=== PATIENT | male | born 1990 | race Caucasian/White ===

== ENCOUNTER 2021-09-07 12:26 | Emergency (ER) | payer OTHER, SELFPAY ==
[2021-09-07 12:43] VITALS: BP 136/84; PULSE 93; RESP 14; TEMP 36.5; O2SAT 95; BMI 19.9
--- NOTE | 2021-09-07 12:55 | ED.GENADULT ---
HPI - General Adult General Chief complaint: Nausea/Vomiting Stated complaint: Chills, Headache, and Vomiting Time Seen by Provider: 09/07/21 12:45 History of Present Illness HPI narrative: This 30-year-old male comes in reporting upper respiratory symptoms that began slightly last evening. He states that he slept through was alarm this morning and awoke with having chills, headache, cough, congestion, nausea, and 3 vomiting episodes. He arrives here actually with normal vital signs. He did not measure a temperature at home. His temperature here is 97.7. He does not have any shortness of breath. Related Data Previous Rx's Medication Instructions Recorded ketorolac 10 mg tablet 10 mg PO TID 5 Days #15 tab 09/07/21 ondansetron HCl 4 mg tablet 4 mg PO Q6H #20 tab 09/07/21 Allergies Allergy/AdvReac Type Severity Reaction Status Date / Time No Known Allergies Allergy Verified 09/07/21 12:46 Review of Systems Status of ROS: Reports: 10 or more systems reviewed and unremarkable except as noted in History and below Narrative: Constitutional: No fevers, no weight gain or loss. Eyes: No discharge. No vision changes. HENT: No sore throat, no ear pain. He reports nasal congestion. Cardiovascular: No chest pain, no palpitations. Respiratory: No shortness of breath, no wheezes. He reports a cough. Gastrointestinal: No abdominal pain, no diarrhea. He has nausea with vomiting. Genitourinary: No dysuria, no hematuria. Musculoskeletal: Normal range of motion. Skin: No rashes, no pruritis. Neurological: No dizziness, weakness, sensory change, speech change. Endo/Heme/Allergies: No bruising or bleeding. No polydipsia. Pysch: no suicidality, no anxiety, no insomnia. All other systems reviewed and are negative. [facility] History (Updated 09/07/21 @ 14:04 by Stephen Mistry MD) No significant past medical history Surgical History (Updated 09/07/21 @ 12:47 by Xenia Langley RN) No significant past surgical history Social History Smoking Status: Current every day smoker What tobacco products do you use: cigarettes How often do you have a drink containing alcohol: monthly or less How many standard drinks containing alcohol do you have on a typical day: 3 or 4 How often do you have six or more drinks on one occasion: Monthly AUDIT-C Alcohol total score: 4 Non-prescribed substance use: denies use Exam Narrative: Exam Narrative: Constitutional: Well-developed, well-nourished, no acute distress. HEENT: Normocephalic, atraumatic. Neck: Normal range of motion. Nontender. Supple. Heart: Regular. No murmurs. Normal rate. Intact distal pulses. Lungs: Clear to auscultation. No chest discomfort. No wheezes, rhonchi, or rales. Abdomen: Normal bowel sounds. Nontender. No rebound tenderness. Genitalia: Deferred. Back: No midline tenderness. Normal range of motion. Extremities: Normal range of motion. No injury. Skin: Intact. No rash. Warm. No erythema or pallor. Neurologic: No altered sensation. No weakness. Alert and oriented. Psychiatric: No suicidality. No anxiety or depression. No insomnia. Nursing notes and vitals signs are reviewed. Const: Vital Signs, click to edit/add: Vital Signs - 24 hr 09/07/21 12:43 Temperature 97.7 F Pulse Rate [Right Pulse Oximeter] 93 Respiratory Rate 14 Blood Pressure [Ri ght Upper Arm] 136/84 Pulse Oximetry 95 Course Vital Signs Vital signs: Initial Vital Signs Temperature 97.7 F 09/07/21 12:43 Temperature Source Temporal Artery Scan 09/07/21 12:43 Pulse Rate 93 09/07/21 12:43 Respiratory Rate 14 09/07/21 12:43 Blood Pressure 136/84 09/07/21 12:43 Blood Pressure Mean 101 09/07/21 12:43 Blood Pressure Position Sitting 09/07/21 12:43 Pulse Oximetry 95 09/07/21 12:43 Oxygen Delivery Method 09/07/21 12:43 Vital Signs Temperature 97.7 F 09/07/21 12:43 Pulse Rate 93 09/07/21 12:43 Respiratory Rate 14 09/07/21 12:43 Blood Pressure 136/84 09/07/21 12:43 Pulse Oximetry 95 09/07/21 12:43 Temperature 97.7 F 09/07/21 12:43 Pulse Rate 93 09/07/21 12:43 Respiratory Rate 14 09/07/21 12:43 Blood Pressure 136/84 09/07/21 12:43 Pulse Oximetry 95 09/07/21 12:43 Medical Decision Making MDM Narrative Medical decision making narrative: This patient comes in with vomiting and upper respiratory symptoms as described above. His COVID and influenza testings returned negative. The patient did receive an oral dose of Zofran which brought great relief to his nausea. He has normal vital signs and is okay to return home. He did received prescriptions for Zofran and Toradol. Lab Data Labs: Lab Results 09/07/21 Range/Units 13:05 SARS-CoV-2 (PCR) Negative SARS-CoV-2 (Negative) Influenza Type A (PCR) Negative PCR FLU A (Negative) Influenza Type B (PCR) Negative PCR FLU B (Negative) Discharge Plan Discharge Clinical Impression: Acute upper respiratory infection Patient Disposition: Home, Self-Care Condition: Improved Instructions: Upper Respiratory Infection (ED) Additional Instructions: Take medication as needed and indicated. Follow up with MD or return if worsening. Prescriptions: New ondansetron HCl 4 mg tablet 4 mg PO Q6H Qty: 20 0RF ketorolac 10 mg tablet 10 mg PO TID 5 Days Qty: 15 0RF Follow Up/Referrals: Provider,Not a Local [Primary Care Provider] - Stand Alone Forms: [employer] Info Instructions
[2021-09-07] MEDS: ONDANSETRON ODT 4 MG TAB PO (13:01)
[2021-09-07 13:50] LABS: PCR FLU A Negative PCR FLU A (Negative); PCR FLU B Negative PCR FLU B (Negative)
[2021-09-07 13:52] LABS: SARS PCR* Negative SARS-CoV-2 (Negative)
[2021-09-07 14:30] VITALS: BP 120/82; PULSE 78; RESP 14; TEMP 37.1
== END 2021-09-07 14:30 | disposition home or self-care (01) ==
PROVIDERS: Emergency Provider Emergency Medicine Emergency Medical Services
DX: J06.9 Acute upper respiratory infection, unspecified (principal)
CPT/HCPCS: 87502; 87635; 99283; 99284; A9270

== ENCOUNTER 2023-08-16 10:48 | Outpatient (CLI) | payer OTHER, SELFPAY | END 2023-08-16 10:49 | disposition home or self-care (01) | PROVIDERS: Visit Provider Internal Medicine | DX: Z13.220 Encounter for screening for lipoid disorders (principal); Z13.228 Encounter for screening for other metabolic disorders; Z12.5 Encounter for screening for malignant neoplasm of prostate | CPT/HCPCS: 80053; 80061; G0103 ==